=== PATIENT | female | born 1935 | race Caucasian/White ===

== ENCOUNTER → 2021-09-04 15:22 | Outpatient (BNVA) | payer MEDICARE, SELFPAY | PROVIDERS: Family Provider Family Medicine; Visit Provider Family Medicine | DX: M79.7 Fibromyalgia (principal); M06.9 Rheumatoid arthritis, unspecified; K21.9 Gastro-esophageal reflux disease without esophagitis; J44.9 Chronic obstructive pulmonary disease, unspecified; I25.10 Atherosclerotic heart disease of native coronary artery without angina pectoris; E05.90 Thyrotoxicosis, unspecified without thyrotoxic crisis or storm; Z76.89 Persons encountering health services in other specified circumstances; M54.40 Lumbago with sciatica, unspecified side | CPT/HCPCS: 80053; 83036; 84443; 85025 ==

== ENCOUNTER 2022-01-30 10:02 | Observation (INO) | payer MEDICARE, SELFPAY ==
[2022-01-30] VITALS (15 sets, daily range): BP systolic 128–150; BP diastolic 64–96; PULSE 86–118; RESP 15–19; TEMP 36.8–37.6; O2SAT 90–98; BMI 34.0
--- NOTE | 2022-01-30 | XRR_ITS ---
PROCEDURE INFORMATION: Exam: XR Chest Exam date and time: 01/30/2022 10:49 AM Age: 86 years old Clinical indication: Cough and dyspnea; Additional info: Dyspnea cough, canceled after done TECHNIQUE: Imaging protocol: XR of the chest. Views: 1 view. COMPARISON: No relevant prior studies available. FINDINGS: Lungs: Unremarkable. No consolidation. Pleural spaces: Unremarkable. No pleural effusion. No pneumothorax. Heart/Mediastinum: Unremarkable. No cardiomegaly. Bones/joints: Unremarkable. XR/XR chest 1V [id number] IMPRESSION: No acute findings.
--- NOTE | 2022-01-30 10:40 | CT_ITS ---
WS: [id number] CT HEAD NONCONTRAST HISTORY: AMS TECHNIQUE: Contiguous axial imaging performed through the brain in 2.5 mm imaging. Bone and soft tiss ue windows. Sagittal and coronal reformats reviewed. All CT scans at [facility] use at least one of these dose optimization techniques: automated exposure control; mA and/or kV adjustment per pa tient size (includes targeted exams where dose is matched to clinical indication); or iterative recon struction. DLP: 789.72 mGy.cm COMPARISON: None available. No acute intracranial hemorrhage, midline shift or mass effect. Moderate atrophy with severe small vessel ischemic changes throughout the white matter which are conf luent. No focal area of sulcal effacement. Ventricles: Normal size with no hydrocephalus. No inferior displacement of cerebellar tonsils. Paranasal sinuses: Increased soft tissue with expansion of the RIGHT sphenoid sinus extending into th e posterior ethmoid air cells. There is also increased opacification without expansion of the LEFT sp henoid sinus. Mastoid air cells: Well pneumatized. Calvarium and scalp: Skull is intact with no soft tissue edema or swelling. CT/CT head wo con* [id number] IMPRESSION: 1. No acute intracranial hemorrhage or edema. 2. Moderate atrophy with severe small vessel ischemic changes. 3. Mildly expansile soft tissue mass centered in the RIGHT sphenoid sinus exte nding into the posterior RIGHT ethmoid air cells. Favor mucocele or polyp.
--- NOTE | 2022-01-30 10:47 | CT_ITS ---
WS: [id number] CT ABDOMEN AND PELVIS WITH CONTRAST HISTORY: abd pain TECHNIQUE: Imaging performed of the abdomen and pelvis with IV contrast. Single phase imaging of the abdomen. Coronal and sagittal reformats are submitted. All CT scans at [facility] use at [address] one of these dose optimization techniques: automated exposure control; mA and/or kV adjustment per patient size (includes targeted exams where dose is matched to clinical indication); or iterative re construction. IV CONTRAST: Omnipaque 300; 50 mL IV. Oral contrast: No DLP: 1314.98 mGy.cm COMPARISON: None available. Lower thorax: Mild elevation of the LEFT hemidiaphragm. Benign granuloma LEFT lung base. Heart is nor mal size. No hiatal hernia. Liver/biliary system: There are several very small hypodensities scattered throughout the liver which are too small to characterize. Normal portal vein. Gallbladder: Normal. No gallstones or wall thickening. No pericholecystic fluid. Pancreas: Mild atrophy. No duct dilatation or mass. Spleen: Normal size spleen. Central hypodensity measures 8 mm. Benign granulomata. Adrenal glands: Normal RIGHT adrenal gland. There is a mixed density mass associated with the LEFT ad renal gland measuring 2.4 x 2.4 cm. There are fact components in lobulated soft tissue components wit h mild enhancement. Right kidney: Nonobstructing 5 mm calcification in the lower pole. Cortical cyst with thinning and sc arring in the mid kidney. Left kidney: No obstruction. Central calcifications probably vascular. Aorta: Moderate atherosclerotic plaque throughout the aorta. No aneurysm. Heavy calcification continu es to the bifurcation of the aorta. There is a significant stenosis in the distal aorta proximal ruth c arteries. Heavy calcified plaque at the origin of celiac axis and a small amount of plaque at the o rigin of the SMA. No occlusion. Lymphadenopathy: None. Free fluid: None. GI tract: Stomach is not distended. No small bowel obstruction. The appendix is not definitely visual ized. No secondary findings of appendicitis. There is mild mucosal thickening and very minimal merry lonic stranding involving the distal descending and sigmoid colon. Numerous diverticula are present i n the sigmoid colon. No free air. No abscess. There is a focal area of increased density measuring 12 mm in the rectum. As there is history of rectal bleeding this could be an active site of bleeding. T his projects into the lumen of the rectosigmoid region. Abdominal wall: Fat containing umbilical hernia. Pelvis: Atrophic uterus as expected. No pelvic mass or free fluid. Bones: Mild compression fracture L1 involving the superior endplate without retropulsion. CT/CT abdomen pelvis w con* [id number] IMPRESSION: 1. No ascites or free air. 2. 12 mm mass enhancing at the rectosigmoid junction. This may be a small poly p or active site of bleeding. 3. Extensive distal colonic and sigmoid diverticulosis. 4. Very minimal mucosal thickening with pericolonic stranding involving the di stal descending colon. Focal colitis or diverticulitis. 5. There is extensive calcification within the distal aorta and common iliac a rteries with components of significant stenosis. Additional component of stenos is involving the celiac axis. Patient is at risk for ischemic bowel disease. No pneumatosis. 6. Mixed density mass LEFT adrenal gland. Mass contains both fat and soft tiss ue component. This may be a collision tumor containing benign and malignant lois or. This mass measures 2.4 x 2.4 cm. This will need a follow-up evaluation to e xclude adrenal neoplasm. Consider 3 month follow-up adrenal mass CT protocol. 7. Too small to characterize hypodensities scattered throughout the liver. Cy sts or very early metastatic lesions.
--- NOTE | 2022-01-30 10:48 | W.ED.AMS ---
HPI - Altered Mental Status General: Chief Complaint: Altered Mental Status Stated Complaint: AMS Time Seen by Provider: 01/30/22 10:18 Source: patient and family Mode of arrival: EMS Limitations: altered mental status History of Present Illness: 86-year-old female presents to the emergency room with altered mental status has been progressively worsening for the last about 4-5 days. Patient is extremely pale in appearance. Denies any hematochezia, melena hematemesis or coffee-ground emesis that they have noted. She seemed to be doing well about 4 to 5 days ago has some underlying cognitive issues but those seem to be stable. No known history of cancers. Daughter thought she had received a blood transfusion several years ago but could not recall what for. The only previous CBC on the chart does show anemia with normal MCV. 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 CAD (coronary artery disease) Celiac disease COPD (chronic obstructive pulmonary disease) Fibromyalgia GERD without esophagitis Hyperthyroidism IBS (irritable bowel syndrome) Peripheral neuropathic pain Rheumatoid arthritis Surgical History No significant past surgical history Family History Daughter Melanoma Sister Melanoma Other Cancer Social History Smoking and tobacco status: former smoker Quit status (tobacco): has quit using tobacco Year quit tobacco: 2006 Alcohol intake: never Substance/Drug Use: never Lives independently: No Household members: children Marital status: / Physical Exam Const: COMMON NORMALS: no acute distress GENERAL APPEARANCE: cooperative and comfortable HENMT: COMMON NORMALS: normocephalic and atraumatic HEAD & SCALP: normocephalic and atraumatic Eye: COMMON NORMALS: Equal, round and reactive pupils present, EOMs intact bilaterally, conjunctivae normal and no scleral icterus CONJUNCTIVA: Yes conjunctivae normal PUPIL: Yes Equal, round and reactive pupils present Neck/C-Spine: COMMON NORMALS: full ROM and no lymphadenopathy Resp: COMMON NORMALS: normal respiratory effort, No retractions, No use of accessory muscles and clear to auscultation bilaterally AUSCULTATION: clear to auscultation bilaterally Cardio: COMMON NORMALS: regular rhythm RATE: tachycardic RHYTHM: regular rhythm GI: COMMON NORMALS: Soft to palpation; negative for No hepatosplenomegaly present PALPATION: Yes Soft to palpation, No Tenderness to palpation present (GI), No Guarding due to palpation present (GI) and No No hepatosplenomegaly present : COMMON NORMALS: Yes no CVA tenderness BLADDER/KIDNEY EXAM: Yes no CVA tenderness Back/Pelvis: COMMON NORMALS: no CVA tenderness Psych: THOUGHT CONTENT: No delusions Course Vital Signs: Vital signs: Vital Signs Temperature 98.9 F 02/01/22 11:25 Pulse Rate 87 02/01/22 11:25 Respiratory Rate 18 02/01/22 15:20 Blood Pressure 158/84 02/01/22 11:25 Pulse Oximetry 90 02/01/22 11:25 MDM - Altered Mental Status Medical Decision Making Severe anemia with questionable rectosigmoid mass. Patient's hemoglobin is 6.3. Will admit ordered blood for transfusion discussed with hospitalist orders written prophylactically treat for sigmoid diverticulitis Medical Records I reviewed the patient's medical records. Lab Data I reviewed the patient's lab results. : 02/01/22 05:10 02/01/22 05:10 Radiology Impressions Chest X-Ray 01/30/22 00:00 IMPRESSION: No acute findings. Head CT 01/30/22 10:40 IMPRESSION: 1. No acute intracranial hemorrhage or edema. 2. Moderate atrophy with severe small vessel ischemic changes. 3. Mildly expansile soft tissue mass centered in the RIGHT sphenoid sinus extending into the posterior RIGHT ethmoid air cells. Favor mucocele or polyp. Abdomen/Pelvis CT 01/30/22 10:47 IMPRESSION: 1. No ascites or free air. 2. 12 mm mass enhancing at the rectosigmoid junction. This may be a small polyp or active site of bleeding. 3. Extensive distal colonic and sigmoid diverticulosis. 4. Very minimal mucosal thickening with pericolonic stranding involving the distal descending colon. Focal colitis or diverticulitis. 5. There is extensive calcification within the distal aorta and common iliac arteries with components of significant stenosis. Additional component of stenosis involving the celiac axis. Patient is at risk for ischemic bowel disease. No pneumatosis. 6. Mixed density mass LEFT adrenal gland. Mass contains both fat and soft tissue component. This may be a collision tumor containing benign and malignant tumor. This mass measures 2.4 x 2.4 cm. This will need a follow-up evaluation to exclude adrenal neoplasm. Consider 3 month follow-up adrenal mass CT protocol. 7. Too small to characterize hypodensities scattered throughout the liver. Cysts or very early metastatic lesions. Laboratory Results WBC 6.7 10^3/uL (4.0-10.0) 01/30/22 09:40 RBC 2.85 10^6/uL (4.1-5.3) L 01/30/22 09:40 Hgb 6.3 g/dL (11.5-15.3) L* 01/30/22 09:40 Hct 23.1 % (37.0-47.0) L 01/30/22 09:40 MCV 81.1 fl (81-99) 01/30/22 09:40 MCH 22.1 pg (28.0-34.0) L 01/30/22 09:40 MCHC 27.3 g/dL (30.0-36.0) L 01/30/22 09:40 RDW 19.9 % (12.1-15.1) H 01/30/22 09:40 Plt Count 294 10^3/cmm (130-400) 01/30/22 09:40 MPV 10.7 fL (7.4-10.4) H 01/30/22 09:40 Neut % (Auto) 75.0 % 01/30/22 09:40 Lymph % (Auto) 12.5 % 01/30/22 09:40 [place] % (Auto) 8.1 % 01/30/22 09:40 Eos % (Auto) 2.4 % 01/30/22 09:40 Baso % (Auto) 1.2 % 01/30/22 09:40 Neut # (Auto) 4.99 10^3/uL (1.8-7.7) 01/30/22 09:40 Lymph # (Auto) 0.8 10^3/uL (0.8-4.8) 01/30/22 09:40 [place] # (Auto) 0.5 10^3/uL (0.2-0.9) 01/30/22 09:40 Eos # (Auto) 0.2 10^3/uL (0.0-0.8) 01/30/22 09:40 Baso # (Auto) 0.1 10^3/uL (0.0-0.1) 01/30/22 09:40 Nucleated RBC % (auto) 2.4 % 01/30/22 09:40 Nucleated RBCs # 0.2 /100WBC 01/30/22 09:40 Sodium 139 mmol/L (136-145) 01/30/22 09:40 Potassium 3.8 mmol/L (3.5-5.1) 01/30/22 09:40 Chloride 104 mmol/L (98-107) 01/30/22 09:40 Carbon Dioxide 22 mmol/L (22-29) 01/30/22 09:40 Anion Gap 16.8 (5-19) 01/30/22 09:40 BUN 16 mg/dL (8-23) 01/30/22 09:40 Creatinine 0.5 mg/dL (0.5-0.9) 01/30/22 09:40 GFR Calculation Not Reportable 01/30/22 09:40 Glucose 145 mg/dL (65-115) H 01/30/22 09:40 Calculated Osmolality 292 mOsm/kg (285-295) 01/30/22 09:40 Calcium 8.5 mg/dL (8.5-10.5) 01/30/22 09:40 Total Bilirubin 0.4 mg/dL (0.15-1.2) 01/30/22 09:40 AST 23 U/L (0-32) 01/30/22 09:40 ALT 12 U/L (0-33) 01/30/22 09:40 Alkaline Phosphatase 72 IU/L (35-105) 01/30/22 09:40 Total Protein 6.2 g/dL (6.6-8.7) L 01/30/22 09:40 Albumin 3.5 g/dL (3.5-5.2) 01/30/22 09:40 Globulin 2.7 g/dL (1.3-4.6) 01/30/22 09:40 Blood Type O Negative 01/30/22 10:58 Rho(D) Type Negative 01/30/22 10:58 Antibody Screen Negative 01/30/22 10:58 Crossmatch See Detail 01/30/22 10:58 Discharge Plan Discharge Patient Disposition: Admitted As Inpatient Admit Provider: Sergio Vo Clinical Impression: Mass of colon, Acute anemia, Colitis Condition: Stable Discharge Diet: Advance as tolerated and GI Soft Discharge Activity: Increase activity as tolerated Coding Level of Care Code ED [employer] for [employer]
[2022-01-30 10:53] LABS: Basophils # 0.1 10^3/uL (0.0-0.1); Basophils % 1.2 %; Eosinophils # 0.2 10^3/uL (0.0-0.8); Eosinophils % 2.4 %; Hematocrit 23.1 % (37.0-47.0); Lymphocytes # 0.8 10^3/uL (0.8-4.8); Lymphocytes % 12.5 %; Mean Corpuscular HGB Conc 27.3 g/dL (30.0-36.0); Mean Corpuscular Hemoglobin 22.1 pg (28.0-34.0); Mean Corpuscular Volume 81.1 fl (81-99); Mean Platelet Volume 10.7 fL (7.4-10.4); Monocytes # 0.5 10^3/uL (0.2-0.9); Monocytes % 8.1 %; Neutrophils # 4.99 10^3/uL (1.8-7.7); Nucleated Red Blood Cells # 0.2 /100WBC; Nucleated Red Blood Cells % 2.4 %; Platelet Count 294 10^3/cmm (130-400); Red Blood Count 2.85 10^6/uL (4.1-5.3); Red Cell Distribution Width 19.9 % (12.1-15.1); White Blood Count 6.7 10^3/uL (4.0-10.0)
[2022-01-30 11:02] LABS: Alanine Aminotransferase 12 U/L (0-33); Albumin Level 3.5 g/dL (3.5-5.2); Alkaline Phosphatase 72 IU/L (35-105); Anion Gap 16.8 (5-19); Aspartate Amino Transferase 23 U/L (0-32); Blood Urea Nitrogen 16 mg/dL (8-23); Calcium 8.5 mg/dL (8.5-10.5); Carbon Dioxide 22 mmol/L (22-29); Chloride 104 mmol/L (98-107); Globulin 2.7 g/dL (1.3-4.6); Glucose 145 mg/dL (65-115); Osmolality Calculated 292 mOsm/kg (285-295); Potassium 3.8 mmol/L (3.5-5.1); Sodium 139 mmol/L (136-145); Total Bilirubin 0.4 mg/dL (0.15-1.2); Total Protein 6.2 g/dL (6.6-8.7)
[2022-01-30 11:07] LABS: Hemoglobin 6.3 g/dL (11.5-15.3)
[2022-01-30] MEDS: iohexol 300 mg/mL 100 mL Btl IV (11:32)
--- NOTE | 2022-01-30 12:21 | PC.NURSE ---
hemmocult completed at bedside + positive result/ confirmed by Dr Snow
--- NOTE | 2022-01-30 12:39 | PC.NURSE ---
report given to Suzette Suarez RN
[2022-01-30] MEDS: D5-NS 0.45% + KCL 20 mEq 20 MEQ/1,000 ML BAG 100 MEQ IV (14:00)
--- NOTE | 2022-01-30 14:11 | P.HP_ITS ---
Providers/Chief Complaint Admitting Physician: Sergio Vo Primary Care Provider: Kamaljit Broussard DO Chief Complaint: AMS History of Present Illness Pleasant 86-year-old lady who had recently moved here from [place], living with her daughter, with history of rheumatoid arthritis on chronic prednisone, leflunomide, celiac disease, IBS, chronic back pain, limited mobility, recently with quite significant functional decline, remote smoking history, has recently been mostly bedbound, with quite significant deterioration regarding 2 person assist over the last week, very generally weak, with recurrent episodes of nausea, dry heaving, although did not notice any nicanor blood, black stools, has not had emesis/coffee-ground emesis. In ER noted with sinus tachycardia, with hemoglobin of 6.3, back in August hemoglobin was 10.7. She does not take any blood thinners, antiplatelets. He is on chronic prednisone. Has had multiple colonoscopies in the past they states due to celiac disease, last one 5 years ago after which stopped due to age. Blood transfusion is arranged. CT abdomen pelvis obtained in ER with following findings: IMPRESSION: 1. No ascites or free air. 2. 12 mm mass enhancing at the rectosigmoid junction. This may be a small polyp or active site of bleeding. 3. Extensive distal colonic and sigmoid diverticulosis. 4. Very minimal mucosal thickening with pericolonic stranding involving the distal descending colon. Focal colitis or diverticulitis. 5. There is extensive calcification within the distal aorta and common iliac arteries with components of significant stenosis. Additional component of stenosis involving the celiac axis. Patient is at risk for ischemic bowel disease. No pneumatosis. 6. Mixed density mass LEFT adrenal gland. Mass contains both fat and soft tissue component. This may be a collision tumor containing benign and malignant tumor. This mass measures 2.4 x 2.4 cm. This will need a follow-up evaluation to exclude adrenal neoplasm. Consider 3 month follow-up adrenal mass CT protocol. 7. Too small to characterize hypodensities scattered throughout the liver. Cysts or very early metastatic lesions. CT head: IMPRESSION: 1. No acute intracranial hemorrhage or edema. 2. Moderate atrophy with severe small vessel ischemic changes. 3. Mildly expansile soft tissue mass centered in the RIGHT sphenoid sinus extending into the posterior RIGHT ethmoid air cells. Favor mucocele or polyp. She states, and her daughter confirms, she is prior wishes with regards to pursuing aggressive intervention, including surgery, and would not want to pursue further diagnosis or biopsy of the possible mass, would not want colonoscopy or upper endoscopy for additional assessment, he is not opposed to blood transfusion, medical therapies including antibiotics, acid victoria, follow-up of blood counts. She would not want additional assessment of adrenal mass, or follow-up with ENT for sphenoid sinus mass. Review of Systems Const: Reports: fatigue and other (Feels cold); Denies: fever(s) or chills Eyes: Denies: change in vision, eye discomfort or eye redness ENMT: Denies: throat pain, oral sores or ear or mastoid pain Card: Denies: chest pain, edema, pre-syncope or dyspnea on exertion Resp: Denies: dyspnea, productive cough, change in phlegm color or hemoptysis GI: Reports: nausea, diarrhea and other (Dry heaving); Denies: abdominal pain, hematemesis, coffee ground emesis, hematochezia or melena : Denies: flank pain, urinary frequency or hematuria Musc: Denies: back pain, joint swelling or joint redness Skin/Breast: Denies: rash or new lesions Neuro: Denies: headache(s), numbness in extremities, weakness in extremities, dizziness, confusion or seizure-like activity Endo: Denies: polyuria or polydipsia Karlos/Lymph: Denies: easy bleeding or tender lymph nodes All/Imm: Denies: urticaria or tongue swelling Medications/Allergies Home Medications Medication Instructions Recorded Confirmed Last Taken Type bupropion HCl (smoking deter) 150 150 mg PO BID 09/04/21 01/30/22 Unknown History mg tablet,12 hr sustained-release(smoking deterrent) donepezil 5 mg tablet 5 mg PO DAILY 09/04/21 01/30/22 Unknown History gabapentin 100 mg capsule 100 mg PO DAILY 09/04/21 01/30/22 Unknown History gabapentin 300 mg capsule 300 mg PO DAILY 09/04/21 01/30/22 Unknown History hydroxyzine HCl 25 mg tablet 25 mg PO BID PRN 09/04/21 01/30/22 Unknown History leflunomide 20 mg tablet 20 mg PO DAILY 09/04/21 01/30/22 Unknown History nitroglycerin 2.5 mg 2.5 mg PO BID 09/04/21 01/30/22 Unknown History capsule,extended release (Nitro-Time) pantoprazole 40 mg tablet,delayed 40 mg PO DAILY 09/04/21 01/30/22 Unknown History release propylthiouracil 50 mg tablet 50 mg PO DAILY tab 09/04/21 01/30/22 Unknown History albuterol sulfate 90 mcg/actuation 1 inh INHALATION QID PRN #8.5 g 12/16/21 01/30/22 Unknown Rx aerosol inhaler (Ventolin HFA) oxycodone-acetaminophen 7.5 mg-325 1 tab PO TID 30 Days #90 tab 01/26/22 01/30/22 Unknown Rx mg tablet prednisone 5 mg tablet 10 mg PO DAILY #180 tab 01/26/22 01/30/22 Unknown Rx Allergies Allergy/AdvReac Type Severity Reaction Status Date / Time gluten Allergy Intermediate ADR-Diarrhe Unverified 01/30/22 14:53 a Penicillins Allergy ADR-Vomitin Verified 01/30/22 13:06 g Sulfa (Sulfonamide Allergy ADR-Vomitin Verified 01/30/22 13:06 Antibiotics) g PFSH Acute PFSH: Medical History Back pain of lumbosacral region with sciatica CAD (coronary artery disease) Celiac disease COPD (chronic obstructive pulmonary disease) Fibromyalgia GERD without esophagitis Hyperthyroidism IBS (irritable bowel syndrome) Peripheral neuropathic pain Rheumatoid arthritis Surgical History No significant past surgical history Family History Daughter Melanoma Sister Melanoma Other Cancer Social History Smoking and tobacco status: former smoker Quit status (tobacco): has quit using tobacco Year quit tobacco: 2006 Alcohol intake: never Substance/Drug Use: never Lives independently: No Household members: children Marital status: / Vitals/I&O/Wt Last Vital Signs Temp 98.8 F 01/30/22 13:50 Pulse 111 H 01/30/22 13:50 Resp 16 01/30/22 13:50 BP 149/82 01/30/22 13:50 Pulse Ox 90 01/30/22 13:50 01/29/22 01/30/22 01/30/22 22:59 06:59 14:59 Intake Total 0 / 0 Balance 0 / 0 Weight last 48 hrs Weight 81.647 kg Physical Exam 2 Narrative: Daughter at bedside Const: COMMON NORMALS: alert GENERAL APPEARANCE: cooperative, frail appearing and other (pale) ORIENTATION/CONSCIOUSNESS: Yes awake HENMT: COMMON NORMALS: normocephalic, EAC's normal, Normal external nose present and moist oral mucous membranes HEAD & SCALP: normocephalic NOSE: Normal external nose present EXTERNAL AUDITORY CANAL: EAC's normal Neck/C-Spine: COMMON NORMALS: no meningeal signs Chest: CHEST: Yes Symmetrical chest wall rise Resp: COMMON NORMALS: clear to auscultation bilaterally AUSCULTATION: clear to auscultation bilaterally Cardio: COMMON NORMALS: regular rate, regular rhythm and No murmurs present (Cardio) RATE: regular rate RHYTHM: regular rhythm GI: COMMON NORMALS: Normal to inspection, nondistended, normoactive bowel sounds present and Soft to palpation PALPATION: Yes Soft to palpation and Yes Tenderness to palpation present (GI) Details: LLQ Extremity: COMMON NORMALS: no pedal edema Neuro: COMMON NORMALS: moves all extremities SENSORIUM/ORIENTATION: Yes alert MENINGEAL SIGNS: Yes no meningeal signs Psych: COMMON NORMALS: mental status grossly normal Skin: COMMON NORMALS: no wounds RASHES: no rashes Data : 01/30/22 09:40 01/30/22 09:40 A&P Assessment and plan (1) Acute anemia: Acute blood loss anemia of unknown duration. No noticed nicanor bleeding, daughter states that he was admitted at home, and wonders if that may have fluid in his stools where she was not noticing blood. Discussed last hemoglobin was 10.7 back in August.. Severe functional decline over the last week, with anemia possibly progressing in that timeframe. Receiving RBC transfusion. She did not want upper endoscopy for any surgery. She did not want to pursue any further diagnosis or treatment of possible mass in rectosigmoid colon she is agreeable increase PPI dose, will switch to IV. Reassessment hemoglobin, possible additional transfusion. She is agreeable to treatment of possible colitis or diverticulitis as noted outct. Has not followed up with rheumatology in a while, continues on daily milligram p rednisone. Agreeable to establish with rheumatology here, trial of weaning of prednisone. Status: Acute (2) Mass of colon: Would not want to pursue further diagnostic assessment for treatment. Does not want surgery. Status: Acute (3) Colitis: Descending colon colitis or diverticulitis. Discussed with her and her daughter. She is agreeable for empiric antibiotic coverage. Discussed also surgical fixation of aorta, iliac arteries, as well as stenosis of the celiac trunk. Discussed risk of bowel ischemia. Cipro flagyl. Gentle IV hydration. Status: Acute (4) Adrenal mass 1 cm to 4 cm in diameter: Discussed with her daughter mass, possible malignancy. Declined pursuing additional investigation. Status: Acute (5) Abnormal CT of liver: Discussed lesions in the liver, difficult to distinguish possible cyst versus metastatic disease. She would not want to pursue any additional investigation or management. Status: Acute (6) Celiac artery stenosis: Discussed with her and her daughter. Declines to pursue additional assessment or interventional treatment. Agreeable to starting statin. Not a candidate for antiplatelet at this time. Understand elevated risk for bowel ischemia, would not want surgical correction in case of occurrence. Status: Acute (7) Calcification of aorta: Statin. Not a candidate for antiplatelet. Status: Acute (8) Mass of right sphenoid sinus: Discussed with her and her daughter. Declines to follow-up further. Status: Acute Plan RA: Follow-up with rheumatology, attempt to wean chronic prednisone. Continue leflunomide. COPD GERD CAD Hyperthyroidism Chronic back pain Celiac disease IBS Mobility goals of care: As she is quite limited goals, discussed with him consideration of pursuing hospice care, although they have not thought about it yet and are not yet ready, but will consider and further discussed with primary provider. Attestations Medical Necessity Statement*: Place in observation for further assessment and management of acute severe anemia. Coding Level of Care Code Acute Order Administrator for g Fwd Exam Comprehensive Diagnoses Acute anemia D64.9 Mass of colon K63.89 Colitis K52.9 Adrenal mass 1 cm to 4 cm in diameter E27.[address] of liver R93.2 Celiac artery stenosis I77.1 Calcification of aorta I70.0 Mass of right sphenoid sinus J34.89
[2022-01-30] MEDS: pantoprazole 40 mg SDV IVP (15:48)
[2022-01-30] MEDS: ciprofloxacin 400 MG/200 ML PREMIX 200 MG IV (16:32)
[2022-01-30] MEDS: buPROPion SR (12 HR) 150 mg Tablet PO (18:04)
[2022-01-30] MEDS: metroNIDAZOLE IV 500 MG/100 ML PREMIX 100 MG IV (18:04)
[2022-01-30] MEDS: oxyCODONE-APAP 5-325 mg Tablet 1 TAB PO (21:09)
[2022-01-30] MEDS: atorvastatin 40 mg Tablet PO (21:09)
[2022-01-31] VITALS (13 sets, daily range): BP systolic 122–158; BP diastolic 72–82; PULSE 81–109; RESP 16–18; TEMP 36.4–37.3; O2SAT 91–95
[2022-01-31] MEDS: metroNIDAZOLE IV 500 MG/100 ML PREMIX 100 MG IV ×4 (01:13→23:24)
[2022-01-31] MEDS: ciprofloxacin 400 MG/200 ML PREMIX 200 MG IV ×2 (04:30→16:22)
[2022-01-31] MEDS: pantoprazole 40 mg SDV IVP ×2 (04:30→16:23)
[2022-01-31] MEDS: D5-NS 0.45% + KCL 20 mEq 20 MEQ/1,000 ML BAG 100 MEQ IV ×2 (04:31→09:25)
[2022-01-31 04:56] LABS: Basophils # 0.1 10^3/uL (0.0-0.1); Basophils % 0.9 %; Eosinophils # 0.2 10^3/uL (0.0-0.8); Eosinophils % 3.9 %; Hematocrit 33.7 % (37.0-47.0); Hemoglobin 10.3 g/dL (11.5-15.3); Lymphocytes # 0.7 10^3/uL (0.8-4.8); Lymphocytes % 11.7 %; Mean Corpuscular HGB Conc 30.6 g/dL (30.0-36.0); Mean Corpuscular Hemoglobin 25.2 pg (28.0-34.0); Mean Corpuscular Volume 82.4 fl (81-99); Mean Platelet Volume 9.9 fL (7.4-10.4); Monocytes # 0.6 10^3/uL (0.2-0.9); Monocytes % 9.6 %; Neutrophils # 4.27 10^3/uL (1.8-7.7); Neutrophils % 73.2 %; Nucleated Red Blood Cells # 0.1 /100WBC; Nucleated Red Blood Cells % 2.2 %; Platelet Count 193 10^3/cmm (130-400); Red Blood Count 4.09 10^6/uL (4.1-5.3); Red Cell Distribution Width 18.6 % (12.1-15.1); White Blood Count 5.8 10^3/uL (4.0-10.0)
[2022-01-31 05:22] LABS: Anion Gap 14.2 (5-19); Blood Urea Nitrogen 8 mg/dL (8-23); Calcium 8.1 mg/dL (8.5-10.5); Carbon Dioxide 21 mmol/L (22-29); Chloride 105 mmol/L (98-107); Glucose 118 mg/dL (65-115); Osmolality Calculated 283 mOsm/kg (285-295); Potassium 3.2 mmol/L (3.5-5.1); Sodium 137 mmol/L (136-145)
[2022-01-31] MEDS: potassium chloride oral liq 20 mEq/15 mL UDC PO ×2 (09:19→09:32)
[2022-01-31] MEDS: donepezil 5 MG Tablet PO (09:32)
[2022-01-31] MEDS: buPROPion SR (12 HR) 150 mg Tablet PO ×2 (09:32→18:07)
[2022-01-31] MEDS: predniSONE 5 mg Tablet 10 MG PO (09:33)
[2022-01-31] MEDS: oxyCODONE-APAP 5-325 mg Tablet 1 TAB PO ×3 (09:33→20:46)
--- NOTE | 2022-01-31 11:49 | PM.PN ---
Subjective Subjective: She is doing better. She has regained color. Improving abdominal tenderness. Vitals/I&O/Wt Last Vital Signs Temp 98.4 F 01/31/22 11:08 Pulse 81 01/31/22 11:08 Resp 16 01/31/22 11:08 BP 124/74 01/31/22 11:08 Pulse Ox 95 01/31/22 11:08 01/30/22 01/31/22 01/31/22 22:59 06:59 14:59 Intake Total 650 / 650 1600 / 2250 490 / 490 Balance 650 / 650 1600 / 2250 490 / 490 Weight last 48 hrs Weight 61.326 kg Weight 81.647 kg Physical Exam Narrative: Daughter at bedside Const: COMMON NORMALS: alert GENERAL APPEARANCE: cooperative, frail appearing and other (regained color) ORIENTATION/CONSCIOUSNESS: Yes awake HENMT: COMMON NORMALS: normocephalic, EAC's normal, Normal external nose present and moist oral mucous membranes HEAD & SCALP: normocephalic NOSE: Normal external nose present EXTERNAL AUDITORY CANAL: EAC's normal Neck/C-Spine: COMMON NORMALS: no meningeal signs Chest: CHEST: Yes Symmetrical chest wall rise Resp: COMMON NORMALS: clear to auscultation bilaterally AUSCULTATION: clear to auscultation bilaterally Cardio: COMMON NORMALS: regular rate, regular rhythm and No murmurs present (Cardio) RATE: regular rate RHYTHM: regular rhythm GI: COMMON NORMALS: Normal to inspection, nondistended, normoactive bowel sounds present and Soft to palpation PALPATION: Yes Soft to palpation and No Tenderness to palpation present (GI) Extremity: COMMON NORMALS: no pedal edema Neuro: COMMON NORMALS: moves all extremities SENSORIUM/ORIENTATION: Yes alert MENINGEAL SIGNS: Yes no meningeal signs Psych: COMMON NORMALS: mental status grossly normal Skin: COMMON NORMALS: no wounds RASHES: no rashes Data : 01/31/22 04:33 01/31/22 04:33 A&P Assessment and plan (1) Acute anemia: Trial of CLD. Repeat CBC in AM. Continue PPI. Acute blood loss anemia of unknown duration. No noticed nicanor bleeding, daughter states that he was admitted at home, and wonders if that may have fluid in his stools where she was not noticing blood. Discussed last hemoglobin was 10.7 back in August.. Severe functional decline over the last week, with anemia possibly progressing in that timeframe. Receiving RBC transfusion. She did not want upper endoscopy for any surgery. She did not want to pursue any further diagnosis or treatment of possible mass in rectosigmoid colon she is agreeable increase PPI dose, will switch to IV. Reassessment hemoglobin, possible additional transfusion. She is agreeable to treatment of possible colitis or diverticulitis as noted outct. Has not followed up with rheumatology in a while, continues on daily milligram prednisone. Agreeable to establish with rheumatology here, trial of weaning of prednisone. Status: Acute (2) Colitis: Improving left lower quadrant pain. Trial of CLD. Continue IV antibiotics for now with Cipro, Flagyl. Gentle IV hydration, reduce rate. Discontinue if tolerating clear liquids. Descending colon colitis or diverticulitis. Discussed with her and her daughter. She is agreeable for empiric antibiotic coverage. Discussed also surgical fixation of aorta, iliac arteries, as well as stenosis of the celiac trunk. Discussed risk of bowel ischemia. Status: Acute (3) Mass of colon: Would not want to pursue further diagnostic assessment for treatment. Does not want surgery. Family and CM are discussing home hospice. Status: Acute (4) Adrenal mass 1 cm to 4 cm in diameter: Discussed with her daughter mass, possible malignancy. Declined pursuing additional investigation. Status: Acute (5) Abnormal CT of liver: Discussed lesions in the liver, difficult to distinguish possible cyst versus metastatic disease. She would not want to pursue any additional investigation or management. Status: Acute (6) Celiac artery stenosis: Discussed with her and her daughter. Declines to pursue additional assessment or interventional treatment. Agreeable to starting statin. Not a candidate for antiplatelet at this time. Understand elevated risk for bowel ischemia, would not want surgical correction in case of occurrence. Status: Acute (7) Calcification of aorta: Statin. Not a candidate for antiplatelet. Status: Acute (8) Mass of right sphenoid sinus: Discussed with her and her daughter. Declines to follow-up further. Status: Acute Plan RA: Follow-up with rheumatology, attempt to wean chronic prednisone. Continue leflunomide. COPD GERD CAD Hyperthyroidism Chronic back pain Celiac disease IBS Mobility goals of care: As she is quite limited goals, discussed with him consideration of pursuing hospice care, although they have not thought about it yet and are not yet ready, but will consider and further discussed with primary provider. Attestations Medical Necessity Statement*: Continue hospitalization for assessment of management of acute anemia, colitis, advancement of diet, reassessment of hemoglobin with limited goals of care, post discharge planning and arrangements. 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
[2022-01-31] MEDS: atorvastatin 40 mg Tablet PO (20:46)
[2022-02-01] VITALS (8 sets, daily range): BP systolic 144–180; BP diastolic 84–90; PULSE 87–102; RESP 16–18; TEMP 36.7–37.2; O2SAT 90–93
[2022-02-01] MEDS: pantoprazole 40 mg SDV IVP ×2 (02:51→15:20)
[2022-02-01] MEDS: ciprofloxacin 400 MG/200 ML PREMIX 200 MG IV ×2 (03:57→15:21)
[2022-02-01 05:36] LABS: Basophils # 0.1 10^3/uL (0.0-0.1); Basophils % 1.1 %; Eosinophils # 0.2 10^3/uL (0.0-0.8); Eosinophils % 3.2 %; Hematocrit 32.7 % (37.0-47.0); Lymphocytes # 0.6 10^3/uL (0.8-4.8); Lymphocytes % 9.5 %; Mean Corpuscular HGB Conc 30.6 g/dL (30.0-36.0); Mean Corpuscular Hemoglobin 25.4 pg (28.0-34.0); Mean Corpuscular Volume 83.2 fl (81-99); Mean Platelet Volume 11.8 fL (7.4-10.4); Monocytes # 0.5 10^3/uL (0.2-0.9); Monocytes % 7.5 %; Neutrophils # 4.86 10^3/uL (1.8-7.7); Neutrophils % 77.9 %; Nucleated Red Blood Cells # 0.1 /100WBC; Nucleated Red Blood Cells % 1.4 %; Platelet Count 204 10^3/cmm (130-400); Red Blood Count 3.93 10^6/uL (4.1-5.3); White Blood Count 6.2 10^3/uL (4.0-10.0)
[2022-02-01 05:51] LABS: Anion Gap 14.3 (5-19); Blood Urea Nitrogen 6 mg/dL (8-23); Calcium 8.1 mg/dL (8.5-10.5); Carbon Dioxide 20 mmol/L (22-29); Chloride 105 mmol/L (98-107); Glucose 146 mg/dL (65-115); Osmolality Calculated 282 mOsm/kg (285-295); Potassium 3.3 mmol/L (3.5-5.1); Sodium 136 mmol/L (136-145)
[2022-02-01] MEDS: metroNIDAZOLE IV 500 MG/100 ML PREMIX 100 MG IV (08:10)
[2022-02-01] MEDS: predniSONE 5 mg Tablet 10 MG PO (08:11)
[2022-02-01] MEDS: oxyCODONE-APAP 5-325 mg Tablet 1 TAB PO ×2 (08:11→15:20)
[2022-02-01] MEDS: donepezil 5 MG Tablet PO (08:11)
[2022-02-01] MEDS: D5-NS 0.45% + KCL 20 mEq 20 MEQ/1,000 ML BAG 30 MEQ IV (08:12)
[2022-02-01] MEDS: ondansetron 2 mg/ML SDV 2 mL 4 MG IVP (10:07)
--- NOTE | 2022-02-01 14:34 | P.DS_ITS ---
Discharge Providers Date of Admission: 01/30/22 12:05 Date of Discharge: February 01, 2022 Attending Provider at Admission: Sergio Vo Attending Provider at Discharge: Sergio Vo Primary Care Provider: Kamaljit Broussard DO Diagnoses at Discharge Discharge Diagnosis (1) Acute anemia: Status: Acute (2) Colitis: Status: Acute (3) Mass of colon: Status: Acute (4) Adrenal mass 1 cm to 4 cm in diameter: Status: Acute (5) Abnormal CT of liver: Status: Acute (6) Celiac artery stenosis: Status: Acute (7) Calcification of aorta: Status: Acute (8) Mass of right sphenoid sinus: Status: Acute Reason for Visit Reason for Visit: AMS Brief History: Pleasant 86-year-old lady who had recently moved here from [place], living with her daughter, with history of rheumatoid arthritis on chronic prednisone, leflunomide, celiac disease, IBS, chronic back pain, limited mobility, recently with quite significant functional decline, remote smoking history, has recently been mostly bedbound, with quite significant deterioration regarding 2 person assist over the last week, very generally weak, with recurrent episodes of nausea, dry heaving, although did not notice any nicanor blood, black stools, has not had emesis/coffee-ground emesis.? In ER noted with sinus tachycardia, with hemoglobin of 6.3, back in August hemoglobin was 10.7.? She does not take any blood thinners, antiplatelets.? He is on chronic prednisone.? Has had multiple colonoscopies in the past they states due to celiac disease, last one 5 years ago after which stopped due to age. Blood transfusion is arranged. CT abdomen pelvis obtained in ER with following findings: IMPRESSION: ? 1.? No ascites or free air. 2.? 12 mm mass enhancing at the rectosigmoid junction. This may be a small polyp or active site of bleeding. 3.? Extensive distal colonic and sigmoid diverticulosis. 4.? Very minimal mucosal thickening with pericolonic stranding involving the distal descending colon. Focal colitis or diverticulitis. 5.? There is extensive calcification within the distal aorta and common iliac arteries with components of significant stenosis. Additional component of stenosis involving the celiac axis. Patient is at risk for ischemic bowel disease. No pneumatosis. 6.? Mixed density mass LEFT adrenal gland. Mass contains both fat and soft tissue component. This may be a collision tumor containing benign and malignant tumor. This mass measures 2.4 x 2.4 cm. This will need a follow-up evaluation to exclude adrenal neoplasm. Consider 3 month follow-up adrenal mass CT protocol. 7. ? Too small to characterize hypodensities scattered throughout the liver. Cysts or very early metastatic lesions. CT head: IMPRESSION: ? 1.? No acute intracranial hemorrhage or edema. 2.? Moderate atrophy with severe small vessel ischemic changes. 3.? Mildly expansile soft tissue mass centered in the RIGHT sphenoid sinus extending into the posterior RIGHT ethmoid air cells. Favor mucocele or polyp. She states, and her daughter confirms, she is prior wishes with regards to pursuing aggressive intervention, including surgery, and would not want to pursue further diagnosis or biopsy of the possible mass, would not want colonoscopy or upper endoscopy for additional assessment, he is not opposed to blood transfusion, medical therapies including antibiotics, acid victoria, follow-up of blood counts.? She would not want additional assessment of adrenal mass, or follow-up with ENT for sphenoid sinus mass. Hospital Course Hospital Course She received 2 units RBC transfusion, with hemoglobin with good response up to 10.3, received IV hydration. This morning IV hemoglobin is 10. Hemodynamically remained stable. PPI was increased to twice daily dosing. She was treated for suspected colitis with ciprofloxacin, Flagyl and will complete course with antibiotics after discharge. Received potassium replacement. She did not want to pursue more aggressive diagnostic evaluation or treatments, would not want endoscopy, and so this was not arranged at this time. Findings of the colonic possible mass, or possible bleeding discussed with her and her león velasquez, as well as other findings on CT including adrenal mass, liver lesions, with possible cyst versus metastatic disease, as well as right sphenoid sinus tissue mass for which she would not want to pursue ENT follow-up. Discussed with her also regarding extensive calcification of aorta, iliac arteries, as well as stenosis of celiac axis, putting her at risk of ischemic bowel. She is started on statin, but not a candidate currently for antiplatelet, please revisit. She declines further assessment by interventional radiology or vascular surgery, would not want surgical intervention in case of ischemic bowel. In case she changes her mind, please arrange for follow-up for these conditions. She otherwise has been preferring to focus more on comfort, and declined physical therapy assessment while in the hospital. Her and her daughter had found that hospice therapy was the more appropriate next step, and arrangements are being made for this to commence after discharge. She has tolerated clear liquid diet. Please follow-up hemoglobin in 4-5 days. Physical Exam Narrative: Daughter at bedside Const: COMMON NORMALS: alert GENERAL APPEARANCE: cooperative, frail appearing and other (regained color) ORIENTATION/CONSCIOUSNESS: Yes awake HENMT: COMMON NORMALS: normocephalic, EAC's normal, Normal external nose present and moist oral mucous membranes HEAD & SCALP: normocephalic NOSE: Normal external nose present EXTERNAL AUDITORY CANAL: EAC's normal Neck/C-Spine: COMMON NORMALS: no meningeal signs Chest: CHEST: Yes Symmetrical chest wall rise Resp: COMMON NORMALS: clear to auscultation bilaterally AUSCULTATION: clear to auscultation bilaterally Cardio: COMMON NORMALS: regular rate, regular rhythm and No murmurs present (Cardio) RATE: regular rate RHYTHM: regular rhythm GI: COMMON NORMALS: Normal to inspection, nondistended, normoactive bowel sounds present and Soft to palpation PALPATION: Yes Soft to palpation and No Tenderness to palpation present (GI) Extremity: COMMON NORMALS: no pedal edema Neuro: COMMON NORMALS: moves all extremities SENSORIUM/ORIENTATION: Yes alert MENINGEAL SIGNS: Yes no meningeal signs Psych: COMMON NORMALS: mental status grossly normal Skin: COMMON NORMALS: no wounds RASHES: no rashes Discharge Data Studies Completed and Pending Completed Studies During Hospitalization Category Date Time Status CT abdomen pelvis w con* [id number] Stat Cat Scan 01/30/22 10:[address] head wo con* [id number] Stat Cat Scan 01/30/22 10:40 Completed XR chest 1V [id number] Routine Exams 01/30/22 Completed Pending at discharge Category Date Time Status Basic Metabolic Panel AM LABS Lab 02/02/22 04:00 Ordered Basic Metabolic Panel AM LABS Lab 02/03/22 04:00 Ordered Complete Blood Count w/Auto AM LABS Lab 02/02/22 04:00 Ordered Complete Blood Count w/Auto AM LABS Lab 02/03/22 04:00 Ordered Occult Blood Stool [Immunochemical Fecal OCB] Routine Lab 01/30/22 11:33 Ordered Urinalysis Stat Lab 01/30/22 23:15 Ordered Radiology Impressions Chest X-Ray 01/30/22 00:00 IMPRESSION: No acute findings. Head CT 01/30/22 10:40 IMPRESSION: 1. No acute intracranial hemorrhage or edema. 2. Moderate atrophy with severe small vessel ischemic changes. 3. Mildly expansile soft tissue mass centered in the RIGHT sphenoid sinus extending into the posterior RIGHT ethmoid air cells. Favor mucocele or polyp. Abdomen/Pelvis CT 01/30/22 10:47 IMPRESSION: 1. No ascites or free air. 2. 12 mm mass enhancing at the rectosigmoid junction. This may be a small polyp or active site of bleeding. 3. Extensive distal colonic and sigmoid diverticulosis. 4. Very minimal mucosal thickening with pericolonic stranding involving the distal descending colon. Focal colitis or diverticulitis. 5. There is extensive calcification within the distal aorta and common iliac arteries with components of significant stenosis. Additional component of stenosis involving the celiac axis. Patient is at risk for ischemic bowel disease. No pneumatosis. 6. Mixed density mass LEFT adrenal gland. Mass contains both fat and soft tissue component. This may be a collision tumor containing benign and malignant tumor. This mass measures 2.4 x 2.4 cm. This will need a follow-up evaluation to exclude adrenal neoplasm. Consider 3 month follow-up adrenal mass CT protocol. 7. Too small to characterize hypodensities scattered throughout the liver. Cysts or very early metastatic lesions. Laboratory Results WBC 6.2 10^3/uL (4.0-10.0) 02/01/22 05:10 RBC 3.93 10^6/uL (4.1-5.3) L 02/01/22 05:10 Hgb 10.0 g/dL (11.5-15.3) L 02/01/22 05:10 Hct 32.7 % (37.0-47.0) L 02/01/22 05:10 MCV 83.2 fl (81-99) 02/01/22 05:10 MCH 25.4 pg (28.0-34.0) L 02/01/22 05:10 MCHC 30.6 g/dL (30.0-36.0) 02/01/22 05:10 RDW 19.0 % (12.1-15.1) H 02/01/22 05:10 Plt Count 204 10^3/cmm (130-400) 02/01/22 05:10 MPV 11.8 fL (7.4-10.4) H 02/01/22 05:10 Neut % (Auto) 77.9 % 02/01/22 05:10 Lymph % (Auto) 9.5 % 02/01/22 05:10 [place] % (Auto) 7.5 % 02/01/22 05:10 Eos % (Auto) 3.2 % 02/01/22 05:10 Baso % (Auto) 1.1 % 02/01/22 05:10 Neut # (Auto) 4.86 10^3/uL (1.8-7.7) 02/01/22 05:10 Lymph # (Auto) 0.6 10^3/uL (0.8-4.8) L 02/01/22 05:10 [place] # (Auto) 0.5 10^3/uL (0.2-0.9) 02/01/22 05:10 Eos # (Auto) 0.2 10^3/uL (0.0-0.8) 02/01/22 05:10 Baso # (Auto) 0.1 10^3/uL (0.0-0.1) 02/01/22 05:10 Nucleated RBC % (auto) 1.4 % 02/01/22 05:10 Nucleated RBCs # 0.1 /100WBC 02/01/22 05:10 Sodium 136 mmol/L (136-145) 02/01/22 05:10 Potassium 3.3 mmol/L (3.5-5.1) L 02/01/22 05:10 Chloride 105 mmol/L (98-107) 02/01/22 05:10 Carbon Dioxide 20 mmol/L (22-29) L 02/01/22 05:10 Anion Gap 14.3 (5-19) 02/01/22 05:10 BUN 6 mg/dL (8-23) L 02/01/22 05:10 Creatinine 0.3 mg/dL (0.5-0.9) L 02/01/22 05:10 GFR Calculation Not Reportable 02/01/22 05:10 Glucose 146 mg/dL (65-115) H 02/01/22 05:10 Calculated Osmolality 282 mOsm/kg (285-295) L 02/01/22 05:10 Calcium 8.1 mg/dL (8.5-10.5) L 02/01/22 05:10 Total Bilirubin 0.4 mg/dL (0.15-1.2) 01/30/22 09:40 AST 23 U/L (0-32) 01/30/22 09:40 ALT 12 U/L (0-33) 01/30/22 09:40 Alkaline Phosphatase 72 IU/L (35-105) 01/30/22 09:40 Total Protein 6.2 g/dL (6.6-8.7) L 01/30/22 09:40 Albumin 3.5 g/dL (3.5-5.2) 01/30/22 09:40 Globulin 2.7 g/dL (1.3-4.6) 01/30/22 09:40 Blood Type O Negative 01/30/22 10:58 Rho(D) Type Negative 01/30/22 10:58 Antibody Screen Negative 01/30/22 10:58 Crossmatch See Detail 01/30/22 10:58 Vitals Last Vital Signs Temp 98.9 F 02/01/22 11:25 Pulse 87 02/01/22 11:25 Resp 18 02/01/22 11:25 BP 158/84 02/01/22 11:25 Pulse Ox 90 02/01/22 11:25 Discharge Plan Discharge Patient Disposition: Hospice - Home Condition: Stable Prescriptions: New atorvastatin 40 mg Tablet 40 mg PO BEDTIME Qty: 90 0RF ciprofloxacin HCl 500 mg tablet 500 mg PO BID 7 Days Qty: 14 0RF metronidazole 500 mg tablet 500 mg PO Q8H 7 Days Qty: 21 0RF ondansetron 4 mg tablet,disintegrating 4 mg PO Q8H PRN (Reason: nausea and vomiting) 4 Days Qty: 12 2RF lidocaine 5 % adhesive patch,medicated 1 patch topical Q24H PRN (Reason: back pain) Qty: 15 0RF Rx Instructions: leave on most painful area for up to 12 hrs morphine 10 mg/5 mL solution 5 mg PO Q4H PRN (Reason: pain) Qty: 100 0RF Continued gabapentin 100 mg capsule 100 mg PO DAILY 0RF propylthiouracil 50 mg tablet 50 mg PO DAILY 0RF leflunomide 20 mg tablet 20 mg PO DAILY 0RF nitroglycerin [Nitro-Time] 2.5 mg capsule, extended release 2.5 mg PO BID 0RF Rx Instructions: allow nitrate-free interval of approx. 10-12 hrs per 24-hour period gabapentin 300 mg capsule 300 mg PO DAILY 0RF bupropion HCl (smoking deter) 150 mg tablet extended release 12 hr 150 mg PO BID 0RF donepezil 5 mg tablet 5 mg PO DAILY 0RF hydroxyzine HCl 25 mg tablet 25 mg PO BID PRN (Reason: Anxiety) 0RF albuterol sulfate [Ventolin HFA] 90 mcg/actuation HFA aerosol inhaler 1 inh inhalation QID PRN (Reason: shortness of breath or wheezing) Qty: 8.5 2RF oxycodone-acetaminophen 7.5-325 mg tablet 1 tab PO TID 30 Days Qty: 90 0RF Changed prednisone 5 mg tablet 5 mg PO DAILY Qty: 180 1RF pantoprazole 40 mg tablet,delayed release (DR/EC) 40 mg PO BID Qty: 90 0RF Discharge Orders: Discharge Order (Routine); Ordered 02/01/22 Ordered By: Sergio Vo Referrals: Rheumatology [Provider Group] - 2 weeks (PLEASE CALL [phone] AND ASK TO SPEAK TO SOMEONE IN RHEUMATOLOGY REGARDING AN APPOINTMENT TO DISCUSS STEROID SPARING THERAPY OPTIONS FOR RA. ) Kamaljit Broussard, [Primary Care Provider] - 4-7 days (PLEASE CALL [phone] TO SEE ABOUT AN APPOINTMENT WITH DR. BROUSSARD. ) Discharge Diet: Advance as tolerated and GI Soft Discharge Activity: Increase activity as tolerated Patient Instructions: Ciprofloxacin (By mouth), Metronidazole (By mouth), Morphine, Rapid Release (By mouth), Ondansetron (By mouth), Atorvastatin (By mouth) (Lipitor), Hospice Care (GEN), How to Turn a Person in Bed (GEN), Pressure Injury (GEN), Opioid Safety (GEN), How to Transfer a Person Safely (GEN), Comfort Measures (GEN) Activity Restrictions/Additional Instructions: Please have hospice service recheck hemoglobin in 4-5 days. Discuss with primary doctor. Your pantoprazole dose has been increased to twice daily. Also prednisone dose decreased to 5 mg, after 3-4 days, if no issues arise, consider additional decreased to 2.5 mg. Please discuss weaning down gradually off of prednisone with your primary doctor. Please note that complete weaning of prednisone may not be possible due to prolonged time you have been taking it, and some steroid may need to remain on board especially if you notice decreases in blood pressure, fatigue, or other symptoms of adrenal insufficiency, or if your arthritis flares again. To help reduce reliance on prednisone, consider also visiting with rheumatology. Nasal cannula oxygen if needed for comfort. Discuss with your primary doctor findings in the colon on CT scan to resemble a mass, possible polyp with bleeding, or other finding. Discuss with your primary doctor regarding spots noted in the liver, difficult to tell if they may be cyst, or possibly early metastatic disease from cancer. Discuss with your primary doctor regarding 2.4 x 2.4 cm mixed density mass in left adrenal gland with possibility of neoplasm. Consider dedicated adrenal mass CT protocol at 3 months. Discuss with your primary doctor regarding, polyp or cystocele in right sphenoid sinus. Discuss also with your primary doctor regarding celiac artery stenosis which puts you at risk of bowel ischemia. You are started on statin. If anemia, GI blood loss resolved, consider if antiplatelet medication may at some point be started, although this may not be safe. Please discuss with your primary doctor. Similarly discuss with your primary doctor regarding calcifications in the aorta. Complete antibiotic course for colitis or diverticulitis in the descending colon. Discuss with your primary doctor. If you change your mind about proceeding endoscopic evaluation, discuss with your primary doctor regarding arrangements 6 weeks after you recover. Otherwise continue comfort oriented care with hospice. Reposition frequently to avoid pressure ulcers. Discharge Attestations Time Spent in Discharge Care*: greater than 30 min Quality Metrics Clinical Quality Measures [ No reported AMI, CVA or VTE this stay] Coding Level of Care Code Acute Chg [facility] note Exam Comprehensive Diagnoses Acute anemia D64.9 Colitis K52.9 Mass of colon K63.89 Adrenal mass 1 cm to 4 cm in diameter E27.[address] of liver R93.2 Celiac artery stenosis I77.1 Calcification of aorta I70.0 Mass of right sphenoid sinus J34.89
== END 2022-02-01 15:52 | disposition hospice, home (50) ==
LOC: ER 10:52 → MEDSURG 12:33
PROVIDERS: Admitting Provider Internal Medicine; Emergency Provider Family Medicine; PCP Family Medicine; Visit Provider Internal Medicine
DX: D64.9 Anemia, unspecified (principal); K52.9 Noninfective gastroenteritis and colitis, unspecified; K63.89 Other specified diseases of intestine; E27.8 Other specified disorders of adrenal gland; R93.2 Abnormal findings on diagnostic imaging of liver and biliary tract; I77.1 Stricture of artery; I70.0 Atherosclerosis of aorta; J34.89 Other specified disorders of nose and nasal sinuses; I25.10 Atherosclerotic heart disease of native coronary artery without angina pectoris; E03.9 Hypothyroidism, unspecified; J44.9 Chronic obstructive pulmonary disease, unspecified; M06.9 Rheumatoid arthritis, unspecified; Z87.891 Personal history of nicotine dependence
CPT/HCPCS: 36415; 36430; 70450; 71045; 74177; 80048; 80053; 85025; 86850; 86900; 86920; 96365; 96367; 96375; 99285; C9113; G0378; J0744; J2405; J7512; P9016; Q9967; S0030